=== PATIENT | female | born 1985 | race Caucasian/White ===

== ENCOUNTER 2017-10-11 10:13 | Emergency (ER) | payer MEDICAID ==
[~2017-10-11] VITALS: Ht 170.2 cm; Wt 81.6 kg
[2017-10-11] MEDS ORDERED: IBUPROFEN 600 MG TABLET PO ONE (11:15)
[2017-10-11] MEDS ORDERED: IBUPROFEN 600 MG TABLET ONE (11:47)
--- NOTE | 2017-10-11 11:57 | NUR ---
Patient discharged to home in stable conditon. Written and verbal after care instructions given. Patient verbalizes understanding of instructions. here to bean picker the pt.
[2017-10-11 11:59] VITALS: BP 109/71
== END 2017-10-11 12:00 | disposition home or self-care (01) ==
LOC: ER 10:13
DX: S82.892A Other fracture of left lower leg, initial encounter for closed fracture (principal); X50.1XXA Overexertion from prolonged static or awkward postures, initial encounter; Y93.89 Activity, other specified; Y92.89 Other specified places as the place of occurrence of the external cause; Y99.8 Other external cause status
CPT/HCPCS: 73610; A4663